=== PATIENT | male | born 1995 | race Caucasian/White ===

== ENCOUNTER → 2016-05-20 | Day surgery (SDC) | payer BC ==
[~2016-05-20] VITALS: Ht 172.7 cm; Wt 70.5 kg
[~2016-05-20] MED LIST: NORCO 5-325 TA1 EACH PO
--- NOTE | ~2016-05-20 | OR ---
PATIENT'S NAME: Swati [facility] AGE: 20 Y [address] ROOM: [place] [address] LOCATION: [facility] – [place] ADMIT DATE: 05/20/2016 OR/Procedure Report DISCHARGE DATE: FAMILY PHYSICIAN: LALI SAHNI MD ATTENDING PHYSICIAN: Fernando Silverio SURGEON: Fernando Silverio MD CALL WORKER: Jose Luis Ag PA-C. 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 PROCEDURE: Excision of pilonidal of pilonidal cyst. ANESTHESIA: General. ESTIMATED BLOOD LOSS: Less than 50 mL. SPECIMEN: Pilonidal cyst with debridement of intergluteal cleft and multiple fistulous tracts. INDICATION: The patient is a 20-year-old gentleman with a 4-year history of complicated pilonidal cyst disease. He has had numerous incision and drainage as treatment without any formal resection. He has had numerous tracts to his superior left right buttocks region. The central pilonidal cyst in the intergluteal cleft had several pits noted. We discussed the planned procedure of pilonidal cystectomy with primary closure. We stressed the risks of infection, the possibility of having to heal by secondary intention or additional procedure for flap coverage. The patient agreed to proceed. DESCRIPTION OF PROCEDURE: After informed consent, the patient was taken to the operating room, and after general anesthetic, he was placed and padded in the prone position. His buttocks were spread apart and taped. His intergluteal cleft was shaved. We marked our elliptical excision lines around the previous scar of the pilonidal cyst disease region, we excised the elliptical portion of the intergluteal cleft all way down to the fascia. We debrided some tissue into the right buttocks where previous tracts were noted. We then placed three 2-0 Prolene sutures through the right buttocks down underneath the fascia of the sacrum and up through the left buttocks. We then irrigated copiously with antibiotic solution the intergluteal cleft. We closed it in layers with 3-0 Vicryl and then closed the skin with interrupted 3-0 Prolene. We placed Kerlix roll over the intergluteal cleft and used as a PATIENT'S NAME: AVIS SCOTTSwati [facility] AGE: 20 Y [address] ROOM: [place], [place] [address] LOCATION: [facility] [place] ADMIT DATE: 05/20/2016 OR/Procedure Report DISCHARGE DATE: FAMILY PHYSICIAN: LALI SAHNI MD ATTENDING PHYSICIAN: Fernando Silverio bolvinita dressing with the Prolene retention sutures. The patient tolerated procedure well, was flipped to the supine position, extubated, and transferred to recovery room in stable condition. Instrument, sponge, and needle count were correct. FERNANDO SILVERIO MD WTS/modl /[id number] d: 06/11/16 1719 t: 06/24/16 1741, OPERATIVE SUMMARY
== END ==
LOC: GPOC 05-18 15:00 → GSDC 06:54
PROC: 0JB90ZZ Excision of Buttock Subcutaneous Tissue and Fascia, Open Approach (ICD-10-PCS; principal; 2016-05-20)
DX: L05.91 Pilonidal cyst without abscess (principal); Z98.890 Other specified postprocedural states
CPT/HCPCS: J0690; J1100; J2250; J2405; J3010; J7120; Q9968